=== PATIENT | female | born 1950 | race Caucasian/White ===

== ENCOUNTER 2017-01-08 06:48 | Day surgery (SDC) | payer BC ==
[~2017-01-08 06:48] MED LIST: Lactated Ringers 1,000 ML IV SCH
[2017-01-08] MEDS ORDERED: Propofol 200 MG/20 ML SDV IV ONE (08:00)
[2017-01-08] MEDS ORDERED: Midazolam 1 MG/ML 2 ML SDV IV ONE (08:00)
--- NOTE | 2017-01-08 08:27 | PCM.OPNOTE ---
- General Post-Op/Procedure Note Date of Surgery/Procedure: 01/08/17 Operative Procedure(s): c scope with bx Findings: rectal polyps x2 Pre Op Diagnosis: screening Post-Op Diagnosis: rectal polyps x2 Anesthesia Technique: MAC Primary Surgeon: Jose Shelley Anesthesia Provider: Patt Tucker Pathology: rectal polyps x2 Complications: None Condition: Good Free Text/Narrative:: see dictation
[2017-01-08 10:43] VITALS: BP 107/81
--- NOTE | 2017-01-08 10:52 | OR ---
DATE OF OPERATION: 01/08/2017 SURGEON: Jose Shelley MD PROCEDURE PERFORMED: Colonoscopy with cold forceps biopsy. PREOPERATIVE DIAGNOSIS: Need for colon cancer screening. POSTOPERATIVE DIAGNOSIS: Rectal polyps x2. INDICATIONS FOR PROCEDURE: This is a 66-year-old white female, who presents for her 10-year followup scope. She was offered and accepted the same. DESCRIPTION OF PROCEDURE: After an excellent IV sedation was administered, digital rectal exam was performed. No marked abnormality was noted. The flexible colonoscope was inserted and advanced to the cecum without difficulty. The following findings were noted. Ascending colon, unremarkable. Transverse colon, unremarkable. Descending colon, unremarkable. Sigmoid, unremarkable. Rectum, at the proximal most rectum, there were two hyperplastic appearing lesions, biopsied and submitted in one container. The remainder of the rectum was unremarkable. Colon was deflated, scope was removed. The patient tolerated the procedure well and was taken to recovery room in good condition. /[id number] MARYANN/YENNIFER
== END 2017-01-08 10:00 | disposition home or self-care (01) ==
LOC: FB.SDS 06:48
PROVIDERS: ATTEND Surgery
DX: Z12.11 Encounter for screening for malignant neoplasm of colon (principal); D12.8 Benign neoplasm of rectum; K62.1 Rectal polyp; Z88.1 Allergy status to other antibiotic agents; Z88.2 Allergy status to sulfonamides; Z88.8 Allergy status to other drugs, medicaments and biological substances; Z79.899 Other long term (current) drug therapy; Z91.09 Other allergy status, other than to drugs and biological substances; Z90.49 Acquired absence of other specified parts of digestive tract; Z90.710 Acquired absence of both cervix and uterus; Z98.890 Other specified postprocedural states; Z98.51 Tubal ligation status
CPT/HCPCS: 45380; 88305; J2250; J2704; J7120

== ENCOUNTER 2023-03-16 06:16 | Day surgery (SDC) | payer MEDICARE, BC ==
[~2023-03-16 06:16] MED LIST changes: +Sodium Chloride 0.9% 10 ML Syringe FLUSH PRN
[2023-03-16] MEDS ORDERED: Propofol 200 MG/20 ML SDV IV ONE (06:17)
[2023-03-16] MEDS ORDERED: Simethicone Drops 40 MG/0.6 ML 30 ML Bottle ONE (07:12)
[2023-03-16 08:24] VITALS: BP 140/94; PULSE 65
== END 2023-03-16 08:37 | disposition home or self-care (01) ==
LOC: FB.SDS 06:16
PROVIDERS: ATTEND Surgery
DX: Z12.11 Encounter for screening for malignant neoplasm of colon (principal); Q43.8 Other specified congenital malformations of intestine; D68.51 Activated protein C resistance; Z86.010 Personal history of colon polyps; Z79.899 Other long term (current) drug therapy; Z88.5 Allergy status to narcotic agent; Z88.2 Allergy status to sulfonamides; Z88.1 Allergy status to other antibiotic agents; Z88.8 Allergy status to other drugs, medicaments and biological substances
CPT/HCPCS: 00812; 99100; A9270-GY; J2704; J7120